=== PATIENT | female | born 1940 | race Caucasian/White ===

== ENCOUNTER 2016-07-18 12:03 | Emergency (ER) | payer MEDICARE ==
[~2016-07-18] VITALS: Ht 162.6 cm; Wt 64.1 kg
[~2016-07-18 12:03] MED LIST: NOMED
[2016-07-18 12:07] VITALS: BP 159/92; PULSE 86; RESP 16; O2SAT 100
--- NOTE | 2016-07-18 12:17 | ED.REPORT ---
HPI-Syncope Date of Service Jul 18, 2016 ED Provider: Ajay Wilks DO 76 year old female with a history of SVT presents to the ER accompanied by her daughter, who is a nurse, complaining of a tachycardic event onset around 04:00 this morning. She awakened feeling very ill, and noticed that she was tachycardic. Upon awakening again around 07:00 symptoms were still present. After symptoms finally resolved around 10:00, she sat down on the toilet to have a BM and felt weak and faint, and became diaphoretic. then assisted patient to the couch to lay down, and called the daughter. After after getting off the couch to make a cup of tea 30 minutes later, she had another similar near-syncopal episode. Patient denies any recent illness, fever, abdominal pain, vomiting, diarrhea, and dysuria. Over the last few weeks she has noticed a slow, irregular heart rhythm, intermittent lightheadedness, shortness of breath at night, difficulty urinating , and 12lb weight loss since November 2015. Daughter reports that the patient has episodes of tachycardia several times monthly, varying in duration, that resolves on its own. These episodes have been diagnosed as SVT previously, but she rarely sees a provider for symptoms. In the past she has been successfully cardioverted with adenosine. Patient is quite active, walking 30 minutes and 16 flights of stairs on a daily basis, though she denies elicitation of chest pain , SOB, or tachycardic episodes, with exertion. Nursing Notes Stated Complaint: ALMOST PASSED OUT/CHEST TIGHTNESS Chief Complaint: Dysrhythmia/Cardiac Nursing Notes Reviewed: Yes Allergies: Coded Allergies: soy (Verified Allergy, Intermediate, 07/18/16) No Known Allergies (Unverified Allergy, Unknown, 07/18/16) Miscellaneous Medications No Historical Medication (No Historical Medication) Ea General Time Seen by Provider: 12:16 Chief Complaint [place] faint Syncope Description: Multiple episodes Hx Obtained From: Patient Arrived By: Walk-in Onset Occurred: 5 - 8 hours ago Symptom Duration: Intermittent Progression Since Onset: Resolved Associated with: Reports: Shortness of breath, Denies: Chest pain Pertinent Negative: Pt denies other symptoms Similar Sx Previous: Yes Past Medical History Past Medical History SVT Suspects TIA, was not seen by provider for symptoms Past Surgical History Left Ankle Left Wrist Smoking History Unknown if Ever Smoker Social History Other Social History: Good social support Ambulatory Status Independent Review of Systems Constitutional: Denies: Chills, Fever Respiratory: Reports: Shortness of breath, Denies: Non-productive cough Cardiovascular: Reports: Palpitations, Denies: Chest pain GI: Denies: Abdominal pain, Diarrhea, Nausea, Vomiting Musculoskeletal: Denies: Extremity pain, Neck pain Skin: Reports Diaphoresis Neurologic: Reports: Dizziness, Lightheaded, Denies: Syncope Complete sys rev & neg: except as marked. Additional Review of Systems Female: Reports: Urination decreased, Denies: Dysuria Physical Exam Initial Vital Signs Vital Signs (First) Date Time Temp Pulse Resp B/P Pulse Ox O2 Delivery O2 Flow Rate FiO2 07/18/16 12:07 36.8 86 16 159/92 100 Room Air Initial VS: Reviewed Head / Eyes: Atraumatic, Normocephalic Neck: Supple, Non-tender, Full range of motion Upper Extremities: Vascular intact, Neuro intact, No swelling, No tenderness Skin: Warm, Dry, No cyanosis General/Constitutional: Awake, Alert, Well developed, Well nourished Respiratory / Chest: Breath sounds NL, Breath sounds = bilat, No respiratory distress, No rales, No rhonchi, No wheezing Cardiovascular: Heart rate NL, Regular rhythm, Heart sounds NL, No murmurs, Cap refill not delayed, Peripheral circulation NL Lower Extremity / Pelvis / MS: Inspection NL, No swelling, Non-tender, No erythema, No deformity, Neurologic intact, Vascular intact, No edema Neurologic: Oriented X3, Speech NL, No motor deficits, No sensory deficits, CN II - XII intact, Cerebellar NL Abdomen: Soft, Non-tender, No guarding, No rebound, No distention Interpretation & Diagnostics Lab Results Interpretation Result Diagram: 07/18/16 1240 07/18/16 1240 Test 07/18/16 12:40 07/18/16 14:40 White Blood Count 4.4th/mm3 (3.8-10.1) Red Blood Count 3.99mil/mm3 (3.90-5.20) Hemoglobin 12.2g/dL (12.0-15.6) Hematocrit 37.2% (35.0-46.0) Mean Corpuscular Volume 93.2fL (81-100) Mean Corpuscular Hemoglobin 30.6pg (27.0-35.0) Mean Corpuscular Hemoglobin Concent 32.8% (32.0-37.0) Red Cell Distribution Width 13.8% (12.3-15.4) Platelet Count 172bil/L (150-400) Neutrophils (%) (Auto) 64.1% (40-74) Lymphocytes (%) (Auto) 23.2% (14-46) Monocytes (%) (Auto) 11.2% (4-12) Eosinophils (%) (Auto) 1.1% (0-5) Basophils (%) (Auto) 0.2% (0-3) Sodium Level 139mEq/L (134-144) Potassium Level 4.7mEq/L (3.5-5.2) Chloride Level 102mEq/L (97-108) Carbon Dioxide Level 23mmol/L (18-29) Blood Urea Nitrogen 20mg/dL (8-27) Creatinine 1.08mg/dL (0.57-1.00) Estimat Glomerular Filtration Rate 70mL/min (>59) Glucose Level 125mg/dL (60-99) Calcium Level 9.6mg/dL (8.5-10.1) Magnesium Level 1.9mg/dL (1.6-2.6) Total Bilirubin 0.3mg/dL (0.0-1.2) Aspartate Amino Transf (AST/SGOT) 23U/L (0-50) Alanine Aminotransferase (ALT/SGPT) 20U/L (0-32) Alkaline Phosphatase 75U/L (25-165) Troponin T < 0.010ug/L (0.0-0.011) Total Protein 8.3g/dL (6.4-8.4) Albumin 4.0g/dL (3.4-5.0) Hold Santos Top Tube Received (Received) Hold Urine Received (Received) ECG Interpretation ECG Interpretation: Sinus rhythm, rate 75 1st degree AV block Time: 13:04 Interpreted by: ED physician X-Ray Chest Interpretation Chest Xray Interpretation: IMPRESSION: No acute cardiopulmonary abnormality. Dictated by: Binu Vickers M.D. on 07/18/2016 at 13:01 Approved by: Binu Vickers M.D. on 07/18/2016 at 13:02 View: Portable, 1 view Interpretation / Wet Read by: Interpret - Radiologist Re-Eval/Medical Decision Med Decision/Clinical Course Near syncopal episode today without particular high-risk features other than advanced age. Patient is back to normal baseline has ambulated and feels better. Recommended close outpatient follow-up, aspirin therapy daily. Return and follow-up precautions given. Source of Hx: Old records Re-Evaluation/Progress #1: Time of Eval: 13:09 Re-Evaluation/Progress Note: Completed interview and physical examination. Re-Evaluation/Progress #2: Time of Eval: 14:05 Re-Evaluation/Progress Note: Patient feels better. Discussed lab and radiology results. Re-Evaluation/Progress #3: Time of Eval: 14:48 Re-Evaluation/Progress Note: Discussed plan to discharge. Patient is amenable to the plan. Return precautions given. All other questions addressed. Consultation : Referral / Consult Name: Anthony Lr MD Consulted With: Cardiology Call Returned at: 14:23 Note: If back to baseline, will need follow-up. Counseled Regarding: Diagnosis, Lab results, Need for follow-up, When/why to return to ED Discharge & Departure Impression: Primary Impression: Near syncope Disposition: Home Discharge Condition All VS Reviewed: Yes Condition: Stable Patient Instructions: Syncope (ED) Additional Instructions: Overall your workup is reassuring today. I am glad that you are feeling better. You should continue taking an aspirin daily, call your primary care doctor or cardiology today in order to have close outpatient follow-up with echocardiogram and Holter monitoring. Return to the ER immediately if you develop signs or symptoms of stroke, severe chest pain, trouble breathing, recurrent episodes of passing out, or any other concerns. Referrals: Carlos Groves MD (PCP) [facility] Attestation Portions of this note were transcribed by Dulce Ramirez. I, Dr. Wilks, personally performed the history, physical exam and medical decision-making; I reviewed and confirmed the accuracy of the information in the transcribed note. Signed by: Garrett Smith, 07/18/2016 and 15:12 copies to: Carlos Groves MD, Timothy S DO Jul 18, 2016 12:17 DULCE RAMIREZ Jul 18, 2016 12:31
[2016-07-18 13:00] LABS: BASOPHILS % (AUTO) 0.2 % (0-3); EOSINOPHILS % (AUTO) 1.1 % (0-5); MONOCYTES % (AUTO) 11.2 % (4-12); Mean Corpuscular Hemoglobin 30.6 pg (27.0-35.0); Mean Corpuscular Volume 93.2 fL (81-100); NEUTROPHILS % (AUTO) 64.1 % (40-74); Platelet Count 172 bil/L (150-400)
--- NOTE | 2016-07-18 13:03 | DRSVH ---
PROCEDURE: X-RAY CHEST ONE VIEW, PORTABLE ([id number]) INDICATIONS: SHORTNESS OF BREATH TECHNIQUE: One view of the chest was acquired. COMPARISON: 10/31/2012 FINDINGS: Surgical changes and devices: None. Lungs and pleura: No pleural effusions or pneumothorax. Lungs are clear. Mediastinum: Mediastinal contours appear normal. Heart size is normal. Tortuous aorta. Bones and chest wall: No suspicious bony lesions. Overlying soft tissues appear unremarkable. IMPRESSION: No acute cardiopulmonary abnormality. Dictated by: Binu Vickers M.D. on 07/18/2016 at 13:01 Approved by: Binu Vickers M.D. on 07/18/2016 at 13:02
[2016-07-18] MEDS ORDERED: 0.9% Sodium Chloride 1,000 ML IV ONE (13:20)
[2016-07-18 13:27] LABS: TROPONIN T < 0.010 ug/L (0.0-0.011)
[2016-07-18 13:30] VITALS: BP 138/80; PULSE 80; RESP 15; O2SAT 98
[2016-07-18 13:41] LABS: Magnesium 1.9 mg/dL (1.6-2.6)
[2016-07-18 15:18] VITALS: BP 140/67; PULSE 76; RESP 17; O2SAT 98
== END 2016-07-18 15:21 | disposition home or self-care (01) ==
LOC: SED 12:03
DX: R55 Syncope and collapse (principal); R61 Generalized hyperhidrosis; R42 Dizziness and giddiness; R06.02 Shortness of breath; R30.0 Dysuria; R63.4 Abnormal weight loss; Z91.018 Allergy to other foods
CPT/HCPCS: 36415; 71010; 80053; 83735; 84484; 85025; 93005; 96360; 99285; J7030